=== PATIENT | female | born 1965 | race Caucasian/White ===

== ENCOUNTER → 2017-01-29 | Outpatient (CLI) | payer BC, OTHER ==
--- NOTE | 2017-01-29 08:32 | DIAGNOSTIC IMAGING REPORT ---
There is RIGHT FOOT MIN 3 VIEWS CLINICAL HISTORY: 51 years-old Female presenting with RIGHT GREAT TOE PAIN. TECHNIQUE: Frontal, oblique, and lateral views of the right foot were obtained. COMPARISON: None. FINDINGS: No acute fracture or malalignment. Specifically, the right great toe is normal appearing. No radiopaque foreign body. Regional soft tissues normal. No significant degenerative change. IMPRESSION: No acute osseous injury of the right foot. Electronically signed by: Dennis Dempsey M.D. 01/29/2017 8:30 AM Dictated Date/Time: 01/29/2017 8:19 AM
== END | disposition home or self-care (01) ==
LOC: C.RDSM 12:10
PROVIDERS: ATTEND Podiatrist
DX: M79.676 Pain in unspecified toe(s) (principal)

== ENCOUNTER → 2017-03-20 | Outpatient (CLI) | payer BC ==
--- NOTE | 2017-03-20 13:55 | MAMMOGRAPHY REPORT ---
BILATERAL DIGITAL SCREENING MAMMOGRAM TOMOSYNTHESIS WITH CAD: 03/20/2017 CLINICAL HISTORY: Routine screening. Patient has no complaints. TECHNIQUE: Breast tomosynthesis in addition to standard 2D mammography was performed. Current study was also evaluated with a Computer Aided Detection (CAD) system. COMPARISON: Comparison is made to exams dated: 03/19/2016 mammogram, 03/15/2015 mammogram, 03/09/2014 mammogram, 03/05/2013 mammogram, 02/28/2012 mammogram, and 02/28/2011 ultrasound - [facility]. BREAST COMPOSITION: There are scattered areas of fibroglandular density in both breasts. FINDINGS: No suspicious masses, calcifications, or areas of architectural distortion are noted in ei ther breast. There has been no significant interval change compared to prior exams. IMPRESSION: ACR BI-RADS CATEGORY 1: NEGATIVE There is no mammographic evidence of malignancy. A 1 year screening mammogram is recommended. The pa tient will receive written notification of the results. Approximately 10% of breast cancers are not detected with mammography. A negative mammographic report should not delay biopsy if a clinically suggestive mass is present. Mag Greer M.D. /:03/20/2017 07:38:27 Statistics Tutor: Rachelle MARMOLEJO)(Emily), [facility] letter sent: Normal 1/2 BI-RADS Code: ACR BI-RADS Category 1: Negative
== END | disposition home or self-care (01) ==
LOC: C.MAMM 07:08
PROVIDERS: ATTEND Family Medicine
DX: Z12.31 Encounter for screening mammogram for malignant neoplasm of breast (principal)

== ENCOUNTER 2019-12-28 11:48 | Observation (INO) ==
[2019-12-28] MEDS ORDERED: OPTIRAY 320 125ml IV PRN (12:17)
[2019-12-28 12:18] LABS: Basophils # (auto) 0.05 K/uL (0-0.2); Basophils % (auto) 0.8 %; Eosinophils # (auto) 0.24 K/uL (0-0.5); Eosinophils % (auto) 3.8 %; Hemoglobin 14.3 g/dL (12.0-16.0); Immature Granulocytes # (auto) 0.01 K/uL (0.00-0.02); Immature Granulocytes % (auto) 0.2 %; Lymphocytes # (auto) 2.44 K/uL (1.2-3.4); Lymphocytes % (auto) 38.8 %; Mean Corpuscular Hemoglobin 29.4 pg (25-34); Mean Corpuscular Volume 86.2 fL (80-100); Mean Platelet Volume 9.8 fL (7.4-10.4); Monocytes # (auto) 0.55 K/uL (0.11-0.59); Monocytes % (auto) 8.7 %; Neutrophils % (auto) 47.7 %; Platelet Count 316 K/uL (130-400); RDW Coefficient of Variation 13.9 % (11.5-14.5); RDW Standard Deviation 43.9 fL (36.4-46.3); Red Blood Count 4.87 M/uL (4.2-5.4); White Blood Count 6.29 K/uL (4.8-10.8)
--- NOTE | 2019-12-28 12:25 | Emergency Department Note ---
Impression & Plan TIA (transient ischemic attack), Hypertension ED Provider Note NAME: ELIZABETH KENDALL AGE: 54 SEX: F : 1965 ARRIVES VIA: Walk-In INFORMANT: Patient, ED PROVIDER(S): Tommy Hernandez DO CHIEF COMPLAINT: Weakness HPI: The patient is a 54-year-old female who presented to the emergency department for an evaluation of left-sided neurologic symptoms. The patient states that approximately 11:15 AM today she started having symptoms of neurologic problems on the left side of her body. The patient states initially she was having numbness and tingling on the left side of her face the left arm and the left leg. She states that she also noticed that she had a "heavy feeling" in her left upper extremity. The patient does not have a history of stroke in the past. She carries no history of hypertension. The patient denies having any nausea or vomiting. She denies having any headache although she does have a history of migraines. She denies having any fevers or recent traveling. The patient does have a recent procedure to her right foot and is wearing a hard bottom shoe. The patient states that she did not see her primary care physician for the symptoms because they referred her to the emergency department. She sta arya her symptoms are significantly improved but still notices heaviness in her left arm and tingling in her left arm and left face. ROS: See above HPI for pertinent positives & negatives. A total of 10 systems reviewed and were otherwise negative. PAST MEDICAL HISTORY: See Below PAST SURGICAL HISTORY: See Below FAMILY HISTORY: See Below SOCIAL HISTORY: See Below HOME MEDICATIONS: See Below ALLERGIES: See Below VITALS: See Below PHYSICAL EXAMINATION: GENERAL: Patient is awake alert in no acute distress patient is resting comfortably and showing no signs of anxiety EYES: The conjunctivae are clear. The pupils are round and reactive. EARS, NOSE, MOUTH AND THROAT: The nose is without any evidence of any deformity. Mucous membranes are moist. Tongue is midline. NECK: The neck is nontender and supple. RESPIRATORY: Normal respiratory effort is noted there is no evidence of wheezing rhonchi or rales CARDIOVASCULAR: Regular rate and rhythm noted there no murmurs rubs or gallops normal S1 normal S2. GASTROINTESTINAL: The abdomen is soft. Abdomen is nontender. MUSCULOSKELETAL/EXTREMITIES: There is no evidence of gross deformity full range of motion is noted in the hips and shoulders. SKIN: There is no obvious evidence of any rash. There are no petechiae, pallor or cyanosis noted. NEUROLOGIC: Patient is awake alert and oriented x3 strength is symmetric patellar reflexes are 2+ bilaterally MEDICAL DECISION MAKING: The patient is a 54-year-old female who presented to the emergency department for an evaluation of acute neurologic issues. The patient initially had left- sided numbness which began acutely. She also noticed heaviness in her left arm. Because of these complaints she was initially made a stroke alert. Her symptoms quickly improved while she was at home but also while she was in the emergency department. On final reevaluation her symptoms completely resolved. She was found to have elevated blood pressure initially but this also improved while she was in the emergency department. The patient has a history of an ASD. I discussed this case with the tele-stroke neurologist from [facility]. The neurologist made multiple recommendations including further TIA work-up given the patient's ASD she may be at higher risk. I discussed this plan with the patient and she was agreeable. The [facility] hospitalist was notified about this patient. The patient was treated with aspirin in the emergency department. Triage Nursing notes reviewed. Prior medical records reviewed Vital Signs: reviewed and remarkable for elevated blood pressure Differential diagnosis: Infection, dehydration, metabolic abnormality, hypo/hyperglycemia, electrolyte disturbance, anemia, hypoxia, cardiac sources, intracerebral event, toxicologic, neurologic, as well as other pathologies. ER treatment provided: See below Diagnostics interpreted by me: ECG: EKG was obtained in the emergency department. My interpretation is sinus bradycardia 52 bpm. There is no ectopy. Inferior and lateral ST depressions were noted. No previous tracing was available. Cardiac Monitoring: An order was placed for continuous cardiac monitoring. The monitor shows a rate of 55 with sinus bradycardia rhythm. Laboratory studies: As stated above and show below. Imaging studies: See below Consultation(s): 1210: I discussed this case with Dr. Majano with [facility]. She is on-call for the stroke neurologist. After reviewing the patient's physical exam as well as the radiographic studies she does recommend a formal TIA work-up including MRI of the brain, echocardiogram, A1c measurement, lipids, Holter mo nitoring, and aspirin therapy. The patient was ordered aspirin now and she also recommends 81 mg daily. 1355: I discussed this case with Dr. Delgado who is on-call for the [facility] hospitalist group. Past Med/Surg History Medical History Atrial septal defect no instrument checker, no issues Exercise-induced asthma Surgical History History of cervical cerclage (Resolved) History of colonoscopy History of oral surgery gum sx History of tonsillectomy and adenoidectomy History of tooth extraction History of wisdom tooth extraction Family History Son Allergic rhinitis Grandmother Asthma Father Family history of diabetes mellitus Other No family history of adverse response to anesthesia Social History Smoking Status: Never smoker Second Hand Exposure: No; Hx Alcohol Use: Yes Alcohol type: beer and wine Hx Substance Use: No Preferred Language: Citizen Of [place] Communication Ability: Effective Cashier Supervisor Required: No Beliefs That Will Affect Care: None marital status: Current Living Situation: Spouse current occupational status: employed Feels Safe at Home: Yes Allergies Allergies Allergy/AdvReac Type Severity Reaction Status Date / Time No Known Allergies Allergy Verified 12/28/19 13:31 Home Meds Home Medications Medication Instructions Recorded Confirmed albuterol sulfate 90 mcg/actuation 2 puffs INHALATION .COMPLEX gm 03/07/19 12/28/19 aerosol inhaler calcium carbonate 600 mg (1,500 1 tab PO 3XWK tab 03/07/19 12/28/19 mg)-vitamin D3 200 unit tablet Previous Rx's Medication Instructions Recorded montelukast 10 mg tablet 10 mg PO DAILY #90 tab 03/26/19 Results & Data (ED) Vital Signs Vital Signs - 24 hr 12/28/19 11:51 12/28/19 12:03 12/28/19 12:28 Temperature 36.6 C Temperature Source Oral Pulse Rate 68 69 Pulse Rate [Apical] 68 Pulse Rate from SpO2 Sensor 69 Pulse Rhythm [Apical] Regular Respiratory Rate 18 18 15 Respiratory Effort / Characteristics Non-Labored Non-Labored Respiratory Depth Normal Normal Blood Pressure 194/99 H 157/97 H Blood Pressure [Right Arm] 149/105 H Blood Pressure Mean 130 123 Blood Pressure Mean [Right Arm] 119 Blood Pressure Position [Right Arm] Sitting Pulse Oximetry 98 97 98 Oxygen Delivery Method Room Air Room Air Sepsis Recent Fever Within 48 Hours No Sepsis New/Unexplained Change in Mental Status No Sepsis Action Taken by Nursing No Action Required 12/28/19 12:30 12/28/19 12:32 12/28/19 13:00 Temperature Temperature Source Pulse Rate 70 69 66 Pulse Rate [Apical] Pulse Rate from SpO2 Sensor 69 69 66 Pulse Rhythm [Apical] Respiratory Rate 19 15 16 Respiratory Effort / Characteristics Respiratory Depth Blood Pressure 159/95 H 169/95 H Blood Pressure [Right Arm] Blood Pressure Mean 107 126 Blood Pressure Mean [Right Arm] Blood Pressure Position [Right Arm] Pulse Oximetry 99 98 96 Oxygen Delivery Method Sepsis Recent Fever Within 48 Hours Sepsis New/Unexplained Change in Mental Status Sepsis Action Taken by Nursing 12/28/19 13:38 Temperature Temperature Source Pulse Rate 60 Pulse Rate [Apical] Pulse Rate from SpO2 Sensor 63 Pulse Rhythm [Apical] Respiratory Rate 18 Respiratory Effort / Characteristics Respiratory Depth Blood Pressure 159/92 H Blood Pressure [Right Arm] Blood Pressure Mean 121 Blood Pressure Mean [Right Arm] Blood Pressure Position [Right Arm] Pulse Oximetry 99 Oxygen Delivery Method Sepsis Recent Fever Within 48 Hours Sepsis New/Unexplained Change in Mental Status Sepsis Action Taken by Correction Medications Current Medication List: was personally reviewed by me Laboratory Data Attestation: I reviewed the patient's lab results. Result diagrams: 12/28/19 12:10 12/28/19 12:10 Lab Results 12/28/19 12/28/19 12/28/19 Range/Units 12:10 12:10 12:10 WBC 6.29 (4.8-10.8) K/uL RBC 4.87 (4.2-5.4) M/uL Hgb 14.3 (12.0-16.0) g/dL POC Hgb (12.0-16.0) g/dl Hct 42.0 (37-47) % POC Hct (37-47) % MCV 86.2 (80-100) fL MCH 29.4 (25-34) pg MCHC 34.0 (32-36) g/dL RDW Std Deviation 43.9 (36.4-46.3) fL RDW Coeff of Perry 13.9 (11.5-14.5) % Plt Count 316 (130-400) K/uL MPV 9.8 (7.4-10.4) fL Immature Gran % (Auto) 0.2 % Neut % (Auto) 47.7 % Lymph % (Auto) 38.8 % Ward % (Auto) 8.7 % Eos % (Auto) 3.8 % Baso % (Auto) 0.8 % Neut # (Auto) 3.00 (1.4-6.5) K/uL Lymph # (Auto) 2.44 (1.2-3.4) K/uL Ward # (Auto) 0.55 (0.11-0.59) K/uL Eos # (Auto) 0.24 (0-0.5) K/uL Baso # (Auto) 0.05 (0-0.2) K/uL Immature Gran # (Auto) 0.01 (0.00-0.02) K/uL PT Cancelled INR Cancelled APTT Cancelled PTT Ratio Cancelled POC Sodium (135-144) mmol/L Sodium 138 (136-145) mmol/L POC Potassium (3.3-5.0) mmol/L Potassium 3.6 (3.5-5.1) mmol/L POC Chloride (101-112) mmol/L Chloride 103 (98-107) mmol/L Carbon Dioxide 27 (21-32) mmol/L POC Total CO2 (24-31) mmol/L Anion Gap 8.0 (3-11) POC Anion Gap (16-25) mmol/L POC BUN (7-18) mg/dl BUN 13 (7-18) mg/dl Creatinine 0.82 (0.6-1.2) mg/dl POC Creatinine (0.6-1.3) mg/dl Est Cr Clr Drug Dosing 61.3 ml/min Est GFR ( Amer) 93.4 Est GFR (Non-Af Amer) 80.6 BUN/Creatinine Ratio 15.8 (10-20) Glucose 102 H (70-99) mg/dl POC Glucose (other) (70-99) mg/dl Calcium 9.4 (8.5-10.1) mg/dl POC Ioniz Calcium Roxanne (1.12-1.32) mmol/l Magnesium 2.2 (1.8-2.4) mg/dl Total Bilirubin 0.5 (0.2-1) mg/dl AST 25 (15-37) U/L ALT 32 (12-78) U/L Alkaline Phosphatase 94 (45-117) U/L Troponin I < 0.015 (0-0.045) ng/ml Total Protein 7.5 (6.4-8.2) gm/dl Albumin 3.6 (3.4-5.0) gm/dl Globulin 3.9 (2.5-4.0) gm/dl Albumin/Globulin Ratio 0.9 (0.9-2) 12/28/19 12/28/19 Range/Units 12:14 12:57 WBC (4.8-10.8) K/uL RBC (4.2-5.4) M/uL Hgb (12.0-16.0) g/dL POC Hgb 15.3 (12.0-16.0) g/dl Hct (37-47) % POC Hct 45 (37-47) % MCV (80-100) fL MCH (25-34) pg MCHC (32-36) g/dL RDW Std Deviation (36.4-46.3) fL RDW Coeff of Perry (11.5-14.5) % Plt Count (130-400) K/uL MPV (7.4-10.4) fL Immature Gran % (Auto) % Neut % (Auto) % Lymph % (Auto) % Ward % (Auto) % Eos % (Auto) % Baso % (Auto) % Neut # (Auto) (1.4-6.5) K/uL Lymph # (Auto) (1.2-3.4) K/uL Ward # (Auto) (0.11-0.59) K/uL Eos # (Auto) (0-0.5) K/uL Baso # (Auto) (0-0.2) K/uL Immature Gran # (Auto) (0.00-0.02) K/uL PT 11.0 INR 1.0 APTT 27.3 PTT Ratio 1.0 POC Sodium 136 (135-144) mmol/L Sodium (136-145) mmol/L POC Potassium 3.6 (3.3-5.0) mmol/L Potassium (3.5-5.1) mmol/L POC Chloride 97 L (101-112) mmol/L Chloride (98-107) mmol/L Carbon Dioxide (21-32) mmol/L POC Total CO2 26 (24-31) mmol/L Anion Gap (3-11) POC Anion Gap 17.0 (16-25) mmol/L POC BUN 15 (7-18) mg/dl BUN (7-18) mg/dl Creatinine (0.6-1.2) mg/dl POC Creatinine 0.8 (0.6-1.3) mg/dl Est Cr Clr Drug Dosing ml/min Est GFR ( Amer) Est GFR (Non-Af Amer) BUN/Creatinine Ratio (10-20) Glucose (70-99) mg/dl POC Glucose (other) 105 H (70-99) mg/dl Calcium (8.5-10.1) mg/dl POC Ioniz Calcium Roxanne 1.18 (1.12-1.32) mmol/l Magnesium (1.8-2.4) mg/dl Total Bilirubin (0.2-1) mg/dl AST (15-37) U/L ALT (12-78) U/L Alkaline Phosphatase (45-117) U/L Troponin I (0-0.045) ng/ml Total Protein (6.4-8.2) gm/dl Albumin (3.4-5.0) gm/dl Globulin (2.5-4.0) gm/dl Albumin/Globulin Ratio (0.9-2) Administered Medications Ioversol (Optiray 320 125ml) 119 ml IV ONCE PRN PRN Reason: Interaction Checking Stop: 01/01/20 12:16 Last Admin: 12/28/19 12:17 Dose: 119 ml Documented by: [id number] Discontinued Medications Aspirin (Aspirin) 324 mg PO NOW STA Stop: 12/28/19 12:57 Last Admin: 12/28/19 13:22 Dose: 324 mg Documented by: [id number] Imaging Data Radiologist's Impression: CT ANGIOGRAPHY OF THE NECK WITH CONTRAST CLINICAL HISTORY: Stroke evaluation COMPARISON STUDY: No previous studies for comparison. Technique: CT angiography of the carotid and vertebral arteries was obtained using Optiray 320 IV and 3D reconstruction on an independent workstation. NASCET criteria was utilized. Automated exposure control was utilized for the study. A dose lowering technique was utilized adhering to the principles of ALARA. Findings: Enlarged, multinodular thyroid gland is again noted. This was shown on prior ultrasound of November 25, [address] of April 08, 2011. Lung apices are clear. No cervical lymphadenopathy. No cervical spine fracture is noted. Epiglottis is normal. The bilateral common carotid, internal carotid and vertebral arteries are patent. No plaque formation is noted. Left vertebral artery is dominant and patent. There is no dissection within the major vessels of the neck. There is no aneurysm within the neck. The CTA of the head will be reported separately. IMPRESSION: 1. Unremarkable CTA of the neck. 2. Redemonstration of an enlarged multinodular thyroid gland, shown on CT of March 21, 2011. ACT 112: Negative or not required by law. Electronically signed by: Chaz Cook M.D. 12/28/2019 12:31 PM Dictated: 12/28/19 1227 Transcribed: 12/28/191226 CTA ANGIOGRAPHY OF THE HEAD CLINICAL HISTORY: Stroke evaluation. Left extremity tingling. COMPARISON STUDY: No previous studies for comparison. TECHNIQUE: Helical axial images of the head were obtained following uneventful intravenous administration of 119 cc of Optiray 320. Sagittal and coronal reconstructions were viewed as well as maximal intensity projections on an independent 3-D workstation. Automated exposure control was utilized for the study. A dose lowering technique was utilized adhering to the principles of ALARA. FINDINGS: Please note that the CTA of the neck and head CT will be reported separately. No acute intracranial hemorrhage, midline shift or mass effect is present. Ventricular system is unremarkable. The basilar cisterns are patent. There are no extra-axial collections. The bilateral M1, M2, A1 and A2 segments are patent. There is an anterior communicating artery. There is no intracranial aneurysm or dissection. No intraluminal thrombus or abrupt vessel cut off is identified. Intracranial bilateral vertebral arteries are patent. Left vertebral artery is dominant. Basilar artery and bilateral posterior cerebral arteries are patent. Posterior circulation is intact. No plaque formation is noted. IMPRESSION: Unremarkable CTA of the head. ACT 112: Negative or not required by law. Electronically signed by: Chaz Cook M.D. 12/28/2019 12:37 PM Dictated: 12/28/19 1233 Transcribed: 12/28/[address] OF THE HEAD WITHOUT CONTRAST CLINICAL HISTORY: Stroke evaluation COMPARISON STUDY: No previous studies for comparison. CT DOSE: 1017.11 mGy.cm TECHNIQUE: Helical axial images of the head were obtained without IV contrast. Automated exposure control was utilized for the study. A dose lowering technique was utilized adhering to the principles of ALARA. FINDINGS: No acute intracranial hemorrhage, midline shift or mass effect is present. Slight asymmetry of the lateral ventricles represents physiologic variation. The basilar cisterns are patent. No extra-axial collections are present. There are no findings to suggest acute dural sinus thrombosis or acute territorial infarct. No significant calvarial abnormalities are present. Visualized portions of the sinuses and mastoid air cells are clear. IMPRESSION: No acute intracranial findings. ACT 112: Negative or not required by law. Electronically signed by: Chaz Cook M.D. 12/28/2019 12:27 PM Dictated: 12/28/19 1224 Transcribed: 12/28/19 1224 XR chest 1V portable CLINICAL HISTORY: weak COMPARISON STUDY: Chest CT March 21, 2011. Chest radiograph December 2019. FINDINGS: Lung volumes are normal. Lungs are clear. There is no pneumothorax or pleural effusion. Cardiac size is normal. Mediastinal contours are normal. There is no evidence for pulmonary edema. IMPRESSION: No acute cardiopulmonary findings. ACT 112: Negative or not required by law. Electronically signed by: Chaz Cook M.D. 12/28/2019 12:38 PM Dictated: 12/28/19 1238 Transcribed: 12/28/19 1238 Blood Pressure Blood Pressure Findings: Elevated blood pressure Blood Pressure Disposition: further management by hospitalist Discharge Plan Visit Data Chief Complaint: Referred by Doctor Stated Complaint: LEFT SIDE ARM NUMBNESS, ED Provider: Tommy Hernandez Discharge Problem: TIA (transient ischemic attack), Hypertension Patient Disposition: Being Evaluated by Hospitalist Condition: Good Forms Stand Alone Forms: My [employer] Prescriptions Prescriptions: No Action albuterol sulfate 90 mcg/actuation HFA aerosol inhaler 2 puffs inhalation .COMPLEX RF: 0 calcium carbonate-vitamin D3 600 mg(1,500mg) -200 unit tablet 1 tab PO 3XWK RF: 0 montelukast 10 mg tablet 10 mg PO DAILY Qty: 90 RF: 3 Referrals Referrals: Nuria Toribio DO [Primary Care Provider] -
[2019-12-28 12:28] LABS: iSTAT Creatinine 0.8 mg/dl (0.6-1.3); iSTAT Hemoglobin 15.3 g/dl (12.0-16.0); iSTAT Ionized Calcium 1.18 mmol/l (1.12-1.32); iSTAT Potassium 3.6 mmol/L (3.3-5.0)
--- NOTE | 2019-12-28 12:28 | CT Scan Report ---
CT OF THE HEAD WITHOUT CONTRAST CLINICAL HISTORY: Stroke evaluation COMPARISON STUDY: No previous studies for comparison. CT DOSE: 1017.11 mGy.cm TECHNIQUE: Helical axial images of the head were obtained without IV contrast. Automated exposure con trol was utilized for the study. A dose lowering technique was utilized adhering to the principles o f ALARA. FINDINGS: No acute intracranial hemorrhage, midline shift or mass effect is present. Slight asymmetry of the lateral ventricles represents physiologic variation. The basilar cisterns are patent. No extr a-axial collections are present. There are no findings to suggest acute dural sinus thrombosis or acu te territorial infarct. No significant calvarial abnormalities are present. Visualized portions of th e sinuses and mastoid air cells are clear. IMPRESSION: No acute intracranial findings. ACT 112: Negative or not required by law. Electronically signed by: Chaz Cook M.D. 12/28/2019 12:27 PM
--- NOTE | 2019-12-28 12:33 | CT Scan Report ---
CT ANGIOGRAPHY OF THE NECK WITH CONTRAST CLINICAL HISTORY: Stroke evaluation COMPARISON STUDY: No previous studies for comparison. Technique: CT angiography of the carotid and vertebral arteries was obtained using [employer] 320 IV and 3D reconstruction on an independent workstation. NASCET criteria was utilized. Automated exposure c ontrol was utilized for the study. A dose lowering technique was utilized adhering to the principles of ALARA. Findings: Enlarged, multinodular thyroid gland is again noted. This was shown on prior ultrasound of November 25, [address] of April 08, 2011. Lung apices are clear. No cervical lymphadenopathy. N o cervical spine fracture is noted. Epiglottis is normal. The bilateral common carotid, internal cornelius tid and vertebral arteries are patent. No plaque formation is noted. Left vertebral artery is dominan t and patent. There is no dissection within the major vessels of the neck. There is no aneurysm withi n the neck. The CTA of the head will be reported separately. IMPRESSION: 1. Unremarkable CTA of the neck. 2. Redemonstration of an enlarged multinodular thyroid gland, shown on CT of March 21, 2011. ACT 112: Negative or not required by law. Electronically signed by: Chaz Cook M.D. 12/28/2019 12:31 PM
--- NOTE | 2019-12-28 12:38 | CT Scan Report ---
CTA ANGIOGRAPHY OF THE HEAD CLINICAL HISTORY: Stroke evaluation. Left extremity tingling. COMPARISON STUDY: No previous studies for comparison. TECHNIQUE: Helical axial images of the head were obtained following uneventful intravenous administr ation of 119 cc of Optiray 320. Sagittal and coronal reconstructions were viewed as well as maximal i ntensity projections on an independent 3-D workstation. Automated exposure control was utilized for the study. A dose lowering technique was utilized adhering to the principles of ALARA. FINDINGS: Please note that the CTA of the neck and head CT will be reported separately. No acute intr acranial hemorrhage, midline shift or mass effect is present. Ventricular system is unremarkable. The basilar cisterns are patent. There are no extra-axial collections. The bilateral M1, M2, A1 and A2 s egments are patent. There is an anterior communicating artery. There is no intracranial aneurysm or d issection. No intraluminal thrombus or abrupt vessel cut off is identified. Intracranial bilateral ve rtebral arteries are patent. Left vertebral artery is dominant. Basilar artery and bilateral posterio r cerebral arteries are patent. Posterior circulation is intact. No plaque formation is noted. IMPRESSION: Unremarkable CTA of the head. ACT 112: Negative or not required by law. Electronically signed by: Chaz Cook M.D. 12/28/2019 12:37 PM
--- NOTE | 2019-12-28 12:40 | XRay Report ---
XR chest 1V portable CLINICAL HISTORY: weak COMPARISON STUDY: Chest CT March 21, 2011. Chest radiograph December 2019. FINDINGS: Lung volumes are normal. Lungs are clear. There is no pneumothorax or pleural effusion. Car diac size is normal. Mediastinal contours are normal. There is no evidence for pulmonary edema. IMPRESSION: No acute cardiopulmonary findings. ACT 112: Negative or not required by law. Electronically signed by: Chaz Cook M.D. 12/28/2019 12:38 PM
[2019-12-28 12:41] LABS: Alanine Aminotransferase 32 U/L (12-78); Albumin Level 3.6 gm/dl (3.4-5.0); Aspartate Aminotransferase 25 U/L (15-37); BUN Creatinine Ratio 15.8 (10-20); Blood Urea Nitrogen 13 mg/dl (7-18); Calcium 9.4 mg/dl (8.5-10.1); Carbon Dioxide 27 mmol/L (21-32); Chloride 103 mmol/L (98-107); Creatinine Clr Calc Pharmacy 61.3 ml/min; Est GFR (African American) 93.4; Est GFR (Non-African American) 80.6; Glucose 102 mg/dl (70-99); Magnesium 2.2 mg/dl (1.8-2.4); Potassium 3.6 mmol/L (3.5-5.1); Sodium 138 mmol/L (136-145)
[2019-12-28 12:46] LABS: Albumin Globulin Ratio 0.9 (0.9-2); Alkaline Phosphatase 94 U/L (45-117); Bilirubin,Total 0.5 mg/dl (0.2-1); Globulin 3.9 gm/dl (2.5-4.0); Total Protein 7.5 gm/dl (6.4-8.2); Troponin I < 0.015 ng/ml (0-0.045)
[2019-12-28] MEDS ORDERED: ASPIRIN CHEW 324 MG PO STA (12:56)
[2019-12-28 13:31] LABS: Partial Thromboplastin Time 27.3 Seconds (21.0-31.0)
--- NOTE | 2019-12-28 13:43 | Electrocardiogram Report ---
Test Reason : Blood Pressure : / mmHG Vent. Rate : 052 BPM Atrial Rate : 052 BPM P-R Int : 166 ms QRS Dur : 082 ms QT Int : 460 ms P-R-T Axes : 057 022 055 degrees QTc Int : 427 ms Sinus bradycardia Possible Left atrial enlargement Nonspecific ST abnormality Abnormal ECG No previous ECGs available Confirmed by Tommy Rhodes ([id number]) on 12/28/2019 1:43:31 PM Referred By: ED Confirmed By:Tommy Rhodes
--- NOTE | 2019-12-28 14:35 | History & Physical Report ---
Date of Service December 28, 2019 Assessment & Plan (1) Stroke-like symptoms: Suspect complex migraine without headache given significant history of this and associated lightheadedness (no vertigo). However symptoms are significantly different from her usual migranous auras and age > 50 yo therefore will complete workup for possible purely sensory (?thalamic) TIA and continue on aspirin pending neurology review. NIH - 0 (symptoms currently completely resolved) ABCD2 score 2 - low risk TTE - if prior atrial septal defect confirmed recommend ultrasound venous Doppler bilateral lower extremity to assess for DVT. Stroke without TPA protocol MRI Brain w/o contrast Lipid panel and HbA1c with a.m. labs - start statin based on neurology consult and AM labs Given resolution of symptoms no need for PT/OT/speech evals Consult neurology (2) Migraine with aura: as above (3) Extrinsic asthma: Albuterol PRN (4) Allergic rhinitis due to pollen: Continue montelukast 10mg PO daily (5) Multinodular thyroid: Incidental finding on CTA, similar to 2011. TSH with a.m. labs Recommend outpatient ultrasound thyroid if not previously performed to assess any particular concerning nodules. Admission and Anticipated Discharge Date Admission Date: 12/28/2019 Anticipated date of discharge: 12/29/19 History of Present Illness Chief Complaint: Stroke-like symptoms Primary Care Provider: Nuria Toribio DO Nila Michel is a 54 year old female who presents to the ER with stroke-like symptoms (purely sensory left sided face, arm, leg numbness/tingling). Symptoms started approximately 11:15 AM while working on a computer. Sudden onset dizziness/lightheadedness/feeling faint with gradually worsening tingling and numbness on the left side of her body including face, arm, leg. She denies any diplopia or vertigo sensation. Symptoms became worse over the 5 to 10 minutes and then gradually became better the next 30 minutes. Her left arm was the last symptom to resolve. No extremity weakness, change in hearing, speech, vision (other than that mentioned above). She has a longstanding history of migraines. These are much more severe as a teenager and classic with a headache lasting for hours with noise and light making it worse. More recently she has an aura/vision sensation without headache which she puts down to migraines usually once a month. These last for 15 to 20 minutes. She had 1 of these yesterday. No increased frequency recently. No increase in stress. No association with looking at screens. Symptoms above are very different to these previous migraine attacks. Telemetry stroke in the ER recommended no TPA given resolution of symptoms. Recommended inpatient work-up for TIA. Allergies Allergy/AdvReac Type Severity Reaction Status Date / Time No Known Allergies Allergy Verified 12/28/19 13:31 Home Medications Home Medications Medication Instructions Recorded Confirmed Type albuterol sulfate 90 mcg/actuation 2 puffs INHALATION .COMPLEX gm 03/07/19 12/28/19 History aerosol inhaler calcium carbonate 600 mg (1,500 1 tab PO 3XWK tab 03/07/19 12/28/19 History mg)-vitamin D3 200 unit tablet montelukast 10 mg tablet 10 mg PO DAILY #90 tab 03/26/19 12/28/19 Rx Past Med/Surg History Medical History Atrial septal defect no boarder machine, no issues Exercise-induced asthma Surgical History History of cervical cerclage (Resolved) History of colonoscopy History of oral surgery gum sx History of tonsillectomy and adenoidectomy History of tooth extraction History of wisdom tooth extraction Family History Son Allergic rhinitis Grandmother Asthma Father Family history of diabetes mellitus Other No family history of adverse response to anesthesia Social History Smoking Status: Never smoker Second Hand Exposure: No; Hx Alcohol Use: Yes Alcohol type: wine Hx Substance Use: No Preferred Language: Emirati Communication Ability: Effective Service Associate Required: No Beliefs That Will Affect Care: None marital status: Current Living Situation: Spouse current occupational status: employed Feels Safe at Home: Yes Review of Systems Review of Systems: All systems reviewed & are unremarkable except as noted in HPI & below Physical Exam Constitutional: well developed and well nourished; no acute distress Eyes: PERRL, conjunctivae normal, anicteric sclerae EOM intact bilaterally (No diplopia) ENMT: external ear and nose normal, oropharynx normal Neck: trachea midline, no thyromegaly Respiratory: normal respiratory effort, lungs clear to auscultation Cardiovascular: RRR, no murmur, no edema Gastrointestinal (Abdomen): normal bowel sounds, soft, nontender, no hepatosplenomegaly Musculoskeletal: no cyanosis or clubbing, extremities motor strength 5/5 Skin: no rashes, warm and dry Neurologic: moves all extremities and awake; no focal motor deficits and not confused Motor/Sensory: no tremor, no pronator drift and no sensory deficit Cranial Nerves: PERRL, normal accommodation, EOM intact bilaterally, normal facial strength, normal hearing, able to rotate head bilaterally, able to elevate shoulders bilaterally, no nystagmus and symmetric palate elevation Coordination: normal pioygi-tq-unvx test and normal qiea-lh-ugzr test Psychiatric: A+Ox3, euthymic affect Lymphatic: no cervical or axillary lymphadenopathy Results & Data Results & Data ([facility]) Vital Signs (Past 12 Hours) Vital Signs Temp Pulse Pulse Resp BP BP Pulse Ox 12/28/19 13:38 60 18 159/92 H 99 12/28/19 13:00 66 16 169/95 H 96 12/28/19 12:32 69 15 98 12/28/19 12:30 70 19 159/95 H 99 12/28/19 12:28 69 15 157/97 H 98 12/28/19 12:03 68 18 149/105 H 97 12/28/19 11:51 36.6 C 68 18 194/[address] OF THE HEAD WITHOUT CONTRAST IMPRESSION: No acute intracranial findings. CTA ANGIOGRAPHY OF THE HEAD IMPRESSION: Unremarkable CTA of the head. CT ANGIOGRAPHY OF THE NECK WITH CONTRAST IMPRESSION: 1. Unremarkable CTA of the neck. 2. Redemonstration of an enlarged multinodular thyroid gland, shown on CT of March 21, 2011. ECG Indication: other (Strokelike symptoms) Rate (beats per minute): 52 Rhythm: sinus bradycardia Findings: no acute ischemic change Comparison ECG Date: no prior available Code Status & VTE Plan Code Status Full VTE Prophylaxis Plan VTE Prophylaxis will be ordered: No PG Care Time/CCT Total # of Minutes Spent Total Time Spent with Patient: Total time spent is greater than 50% in coordination of care (as documented) at patient's floor/unit and/or counseling patient: Coding Level of Care Code 05078 Initial Inpt Care Lvl 3 Diagnoses Stroke-like symptoms R29.90 Migraine with aura G43.109 Intractability: not intractable Status migrainosus presence: without status migrainosus Extrinsic asthma J45.20 Asthma complication type: uncomplicated Asthma persistence: intermittent Asthma severity: mild Allergic rhinitis due to pollen J30.1 Multinodular thyroid E04.2 (1) Migraine with aura Intractability: not intractable Status migrainosus presence: without status migrainosus Qualified Code(s): G43.109 - Migraine with aura, not intractable, without status migrainosus (2) Extrinsic asthma Asthma complication type: uncomplicated Asthma persistence: intermittent Asthma severity: mild Qualified Code(s): J45.20 - Mild intermittent asthma, uncomplicated
[2019-12-28] MEDS ORDERED: PHARMACIST DISCHARGE MED REC CONSULT PRN (15:31)
[2019-12-28] MEDS ORDERED: CALCIUM 600MG + VIT D 400 IU TAB PO PRN (16:00)
--- NOTE | 2019-12-28 16:46 | Magnetic Resonance Report ---
Brain MRI WITHOUT CONTRAST HISTORY: Left sided numbness/tingling TECHNIQUE: Multiplanar multisequence MRI of the brain was performed without the use of contrast. COMPARISON STUDY: Head and neck CTA 12/28/2019. FINDINGS: No areas of restricted diffusion to suggest acute infarction. The midline structures are in tact. The major vascular flow-voids at the skull base are well-maintained. There is an old punctate l acunar infarcts within the right cerebellar hemisphere. Mild mucosal thickening within the left nasal cavity with a hypertrophied nasal turbinate. Small retention cyst within the right maxillary sinus. The mastoid air cells are clear. The orbits are unremarkable. The ventricles and sulci are within nor mal limits. There is no mass, hematoma, midline shift. There are few scattered punctate foci of T2 to hyperintensity seen within the periventricular and subcortical white matter of the supratentorial br ain. These are nonspecific but favor minimal microvascular ischemic change. IMPRESSION: No acute intracranial abnormality. ACT 112: Negative or not required by law. Electronically signed by: Corey Quiñones M.D. 12/28/2019 4:45 PM
--- NOTE | 2019-12-28 18:55 | Neurology Consultation ---
Date of Consultation December 28, 2019 Assessment & Plan (1) Stroke-like symptoms: Nila Michel is a 54 yo woman w/ PMH of ASD, exercise-induced asthma and history of migraine headaches who presents to [facility] after acute onset of visual changes associated with left face and upper extremity tingling. Symptom localization: right IC vs right basis pontis Stroke mechanism: lacunar/lipohyalinosis, less likely cardioembolic Stroke WorkUp: - CT head: no hemorrhage or hypodensity - CTA head/neck: no LVO, high-grade stenosis or aneurysm - MRI brain: no acute infarct, minimal small vessel disease including a single lesion in the right lateral china and asymmetric lateral ventricles - TTE: pending, will consider RADHA - Telemetry: pending - A1c: pending - FLP: pending - Troponin, TSH: negative, pending Stroke Management: - Acute treatment: ASA - Continuous cardiac monitoring, will consider 30 day event monitor on d/c - Vitals, Neurochecks, NIHSS per unit routine - BP parameters: SBP CAP 220, hold home anti-hypertensives for permissive HTN, IV Labetalol/Hydralazine PRN - Complete ischemic stroke workup with TTE without bubble, A1c, fasting lipid panel, TSH, Tn - Consult speech, PT, OT for supportive management - Will relationship counselor concerning stroke education, smoking cessation, healthy diet, physical activity, weight loss - Follow up with PCP for assistance with outpatient goals (BP <130/80, LDL <70, A1c <7) - Follow up in neurology clinic in 6-8 weeks - LE Dopplers given h/o known ASD Secondary Stroke Prevention: - Antiplatelet: ASA 81mg po daily - Anticoagulation: Not indicated at this time - Statin: Atorvastatin 40mg daily pending lipid panel results HTN: - BP parameters, as above FEN/GI: - Diet: Cardiac HH diet and PO meds given absence of bulbar signs or symptoms - Monitor lytes and replete PRN Glucose Control: - Sliding scale insulin and accuchecks per primary team to avoid hyperglycemia # Migraine with aura: - recommended that she start magnesium 200-400mg daily for migraine prevention - discussed with her that migraines are unfortunately a non-modifiable stroke risk factor and that she should work to optimize stroke risk factors as above Thank you for this interesting consult. Plan of care was discussed with primary team. Please call with any questions. (2) Migraine with aura: History of Present Illness Attending Physician: Pawel Delgado MD History of Present Illness Nila Michel is a 54 yo woman w/ PMH of ASD, exercise-induced asthma and history of migraine headaches who presents to [facility] after acute onset of visual changes associated with left face and upper extremity tingling. CISSP ~11:15am on 12/28/19. In the ED, patient was afebrile, BP 194/99, heart rate 68, respiratory rate 18, satting 90% on room air. Labs notable for WBC 6.29, hemoglobin 14.3, platelets 316, electrolytes within normal, creatinine 0.2, glucose 102, calcium 9.4, magnesium 2.2, LFTs within normal, troponin negative. Imaging independently reviewed. CT head shows no hemorrhage or hypodensity. CTA head and neck shows no LVO, high-grade stenosis or aneurysm. MRI brain shows no acute infarct, minimal small vessel disease including a single lesion in the right lateral china and asymmetric lateral ventricles. On examination, she reports that she has a history of migraines that would start off with similar visual changes with spots in her vision with slow progression of numbness and tingling of her left arm and face. Episode today was different and that she had acute onset of this numbness and tingling involving her face and arm, as well as her left leg. She denies having any current headache. Does note that since her surgery last week, she has had at least one typical migraine for her. Does intermittently take magnesium at home from GI issues but not kleber kyle prevention. Denies any recent illness, injury or medication changes aside from taking Tylenol with codeine one time since her surgery last week. Reports that all symptoms resolved within a few hours. 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 Exercise-induced asthma Surgical History History of cervical cerclage (Resolved) History of colonoscopy History of oral surgery gum sx History of tonsillectomy and adenoidectomy History of tooth extraction History of wisdom tooth extraction Family History Son Allergic rhinitis Grandmother Asthma Father Family history of diabetes mellitus Other No family history of adverse response to anesthesia Social History Smoking Status: Never smoker Second Hand Exposure: No; Hx Alcohol Use: Yes Alcohol type: wine Hx Substance Use: No Preferred Language: American Communication Ability: Effective 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 Exam (Neuro) Physical Exam: General Exam: GEN: NAD, sitting down in examination bed. HEENT: No conjunctival injection, no rhinorrhea, moist mucus membranes. CV: RRR on monitor, no significant edema. PULM: Nonlabored respirations on room air. Neuro Exam: MS: Awake and Alert. Oriented to person, place, and date. Speech fluent and appropriate without dysarthria or paraphasic errors. Language intact including naming, comprehension, repetition. Cognition and memory grossly intact. Attention intact. No neglect. CN: Visual mejia full, + blink to threat bilaterally. No extinction to double simultaneous stimuli. Normal fundoscopic exam. PERRLA OU. EOMI without nystagmus. Facial sensation intact to LT. Facial muscles full and symmetric. Hearing intact to finger rub bilaterally. Uvula midline with symmetric palatal elevation. Shoulder shrug normal. Tongue midline. MOTOR: Normal bulk and tone. No pronator drift. BUE strength 5/5 at deltoids, biceps, triceps, wrist flexors and extensors, and finger flexors bilaterally. BL E strength 5/5 at iliopsoas, hamstrings, quadriceps, L tibialis anterior and L gastrocnemius (right foot in boot from recent surgery and unable to fully examine) REFLEXES: 1+ at biceps, triceps, brachioradialis, 2+ patella, and trace Achilles bilaterally. Flexor plantar responses bilaterally. SENSORY: Intact to LT/virbation throughout, no extinction to double simultaneous stimuli. COORDINATION: No dysmetria or ataxia on dkeqtu-pl-rbne bilaterally. Normal Neftali bilaterally. GAIT: Deferred due to physical status. NIH STROKE SCALE 1A. Level of Consciousness (0-3) = 0 1B. LOC Questions (0-2) = 0 1C. LOC Commands (0-2) = 0 2. Best Horizontal Gaze (0-2) = 0 3. Visual Mejia (0-3) = 0 4. Facial Palsy (0-3) = 0 5. Motor Arm Right (0-4) = 0 Left (0-4) = 0 6. Motor Leg Right (0-4) = 0 Left (0-4) = 0 7. Limb Ataxia (0-2) = 0 8. Sensory (0-2) = 0 9. Best Language (0-3) = 0 10. Dysarthria (0-2) = 0 11. Extinction and Inattention (0-2) = 0 NIHSS TOTAL = 0 Results & Data ([facility]) Vital Signs (Past 12 Hours) Vital Signs Temp Pulse Pulse Resp BP BP Pulse Ox 12/28/19 15:42 68 12/28/19 15:31 37.0 C 76 20 145/88 H 96 12/28/19 15:08 70 16 148/81 H 97 12/28/19 14:31 70 16 148/81 H 97 12/28/19 14:01 65 16 155/119 H 99 12/28/19 13:38 60 18 159/92 H 99 12/28/19 13:00 66 16 169/95 H 96 12/28/19 12:32 69 15 98 12/28/19 12:30 70 19 159/95 H 99 12/28/19 12:28 69 15 157/97 H 98 12/28/19 12:03 68 18 149/105 H 97 12/28/19 11:51 36.6 C 68 18 194/99 H 98 PG Care Time/CCT Total # of Minutes Spent Total Time Spent with Patient: Total time spent is greater than 50% in coordination of care (as documented) at patient's floor/unit and/or counseling patient: Coding Level of Care Code 12339 Inpt Consult Level 5 Diagnoses Stroke-like symptoms R29.90 Migraine with aura G43.109
--- NOTE | 2019-12-29 06:32 | Ultrasound Report ---
BILATERAL LOWER EXTREMITY VENOUS DOPPLER HISTORY: Assess for DVT. possible TIA COMPARISON STUDY: None. FINDINGS: There is normal compressibility, flow, and augmentation within the bilateral lower extremit y deep venous systems. IMPRESSION: No DVT within the right or left lower extremity. ACT 112: Negative or not required by law. Electronically signed by: Corey Quiñones M.D. 12/28/2019 8:34 PM
[2019-12-29 07:40] LABS: Basophils # (auto) 0.03 K/uL (0-0.2); Basophils % (auto) 0.7 %; Eosinophils # (auto) 0.21 K/uL (0-0.5); Eosinophils % (auto) 4.8 %; Hematocrit (blood only) 43.7 % (37-47); Hemoglobin 14.8 g/dL (12.0-16.0); Immature Granulocytes # (auto) 0.01 K/uL (0.00-0.02); Immature Granulocytes % (auto) 0.2 %; Lymphocytes # (auto) 1.89 K/uL (1.2-3.4); Lymphocytes % (auto) 42.8 %; Mean Corpuscular Hemoglobin 29.4 pg (25-34); Mean Corpuscular Hgb Conc 33.9 g/dL (32-36); Mean Corpuscular Volume 86.9 fL (80-100); Mean Platelet Volume 9.9 fL (7.4-10.4); Monocytes # (auto) 0.45 K/uL (0.11-0.59); Monocytes % (auto) 10.2 %; Neutrophils # (auto) 1.83 K/uL (1.4-6.5); Neutrophils % (auto) 41.3 %; Platelet Count 332 K/uL (130-400); RDW Coefficient of Variation 14.1 % (11.5-14.5); RDW Standard Deviation 44.6 fL (36.4-46.3); Red Blood Count 5.03 M/uL (4.2-5.4); White Blood Count 4.42 K/uL (4.8-10.8)
[2019-12-29 08:17] LABS: BUN Creatinine Ratio 17.2 (10-20); Calcium 9.3 mg/dl (8.5-10.1); Creatinine Clr Calc Pharmacy 53.5 ml/min; Est GFR (African American) 79.2; Est GFR (Non-African American) 68.3
[2019-12-29 08:27] LABS: Thyroid Stimulating Hormone 1.42 uIu/ml (0.300-4.500)
[2019-12-29] MEDS ORDERED: ASPIRIN 81 MG ECTAB PO SCH (09:00)
[2019-12-29] MEDS ORDERED: MONTELUKAST SODIUM 10 MG TABLET PO SCH (09:00)
--- NOTE | 2019-12-29 09:50 | XCELERA ---
[id number] \\[id number]
[2019-12-29 09:58] LABS: Estimated Average Glucose 117 mg/dl; Hemoglobin A1C 5.7 % (4.5-5.6)
[2019-12-29] MEDS ORDERED: STROKE PATIENT DISCHARGE STA (12:05)
--- NOTE | 2019-12-29 12:36 | Pharmacy Report ---
Pharmacist Stroke Counseling - Date of Service December 29, 2019 - Scope: Pharmacy has been consulted to provide medication discharge counseling for this patient admitted with transient ischemic attack as per the Pharmacist Discharge Counseling for Stroke Patients Protocol. - Medications on Discharge: Home Medications Medication Instructions Recorded Confirmed albuterol sulfate 90 mcg/actuation 2 puffs INHALATION .COMPLEX gm 03/07/19 12/28/19 aerosol inhaler calcium carbonate 600 mg (1,500 1 tab PO 3XWK tab 03/07/19 12/28/19 mg)-vitamin D3 200 unit tablet New Rx's Medication Instructions Recorded montelukast 10 mg tablet 10 mg PO DAILY #90 tab 03/26/19 aspirin 81 mg PO QAM #1 tab 12/29/19 atorvastatin 20 mg PO DAILY #30 tab 12/29/19 - Action: The above medications, specifically ones for stroke treatment/prophylaxis, have been reviewed in detail with the patient prior to discharge. This includes indication, common adverse reactions, drug interactions, and medication administration. Medication counseling has been employed using the teach-back method to ensure understanding. - Outcome: The patient has demonstrated understanding of the medications. Additional comments: Spoke over the phone with patient today- she was very pleasant and receptive to counseling. Reviewed new medications to prevent stroke including Aspirin, Atorvastatin. Discussed why they are being used and common side effects in great detail. Reviewed how to use the medications, what to do if doses are missed, common drug interactions, common side effects, what to watch out for while using the medications. Pt verbalized understanding and restated the alvarenga points of each medication. Patient getting discharged on Atorvastatin 20 mg daily. Atorvastatin 40 mg daily recommended post TIA/ stroke for intense lipid lowering effects. Spoke to Dr. Matson - patient was open to starting low and adjusting up slowly as needed. D/w patient regarding higher dose Atorvastatin 40 mg giving better lipid lowering effects post TIA. However, pt worried about side effects of myalgia and hesitant to start on 40 mg. Continued with Atorvastatin 20 mg daily. Thank you for allowing pharmacy to be involved in the care of this patient. Please call [phone] with any additional questions
--- NOTE | 2019-12-29 12:45 | Neurology Progress Note ---
Date of Service December 29, 2019 Assessment & Plan (1) Stroke-like symptoms: Nila Michel is a 54 yo woman w/ PMH of ASD, exercise-induced asthma and history of migraine headaches who presents to [facility] after acute onset of visual changes associated with left face and upper extremity tingling. Symptom localization: right IC vs right basis pontis Stroke mechanism: lacunar/lipohyalinosis, less likely cardioembolic Stroke WorkUp: - CT head: no hemorrhage or hypodensity - CTA head/neck: no LVO, high-grade stenosis or aneurysm - MRI brain: no acute infarct, minimal small vessel disease including a single lesion in the right lateral [place] and asymmetric lateral ventricles - TTE: EF 60-65%, ASD/PFO, stable from prior echo - Telemetry: Normal sinus rhythm - A1c: 5.7 - FLP: 136 - Troponin, TSH: negative, within normal Stroke Management: - Acute treatment: ASA - Continuous cardiac monitoring, 30 day event monitor on d/c (can be ordered as an outpt) - Vitals, Neurochecks, NIHSS per unit routine - BP parameters: SBP CAP 180, goal normotension - Consult speech, PT, OT for supportive management - Counselled concerning stroke education, smoking cessation, healthy diet, physical activity, weight loss - Follow up with PCP for assistance with outpatient goals (BP <130/80, LDL <70, A1c <7) - Follow up in neurology clinic in 6-8 weeks - LE Dopplers negative Secondary Stroke Prevention: - Antiplatelet: ASA 81mg po daily - Anticoagulation: Not indicated at this time - Statin: Atorvastatin 80mg daily HTN: - BP parameters, as above FEN/GI: - Diet: Cardiac HH diet and PO meds given absence of bulbar signs or symptoms - Monitor lytes and replete PRN Glucose Control: - Sliding scale insulin and accuchecks per primary team to avoid hyperglycemia # Migraine with aura: - recommended that she start magnesium 200-400mg daily for migraine prevention - discussed with her that migraines are unfortunately a non-modifiable stroke risk factor and that she should work to optimize stroke risk factors as above - will recommend trial of ubrelvy as an outpatient for acute migraine treatment as we cannot completely r/o TIA as cause of current episode (which is a contraindication to triptans) Thank you for this interesting consult. Plan of care was discussed with primary team. Please call with any questions. (2) Migraine with aura: Admission and Anticipated Discharge Date Admission Date: December 28, 2019 Anticipated date of discharge: 12/29/19 Subjective NAEs overnight. Doing well this morning, no further similar episodes noted. Review of Systems Review of Systems: 14 point review of systems completed and negative except as in HPI. Results & Data ([facility]) Vital Signs (Past 12 Hours) Vital Signs Temp Pulse Pulse Resp BP Pulse Ox 12/29/19 12:18 36.8 C 56 L 16 129/85 97 12/29/19 11:19 36.8 C 56 L 16 129/85 97 12/29/19 08:30 50 L 12/29/19 06:53 36.7 C 60 18 110/62 95 12/29/19 04:29 36.8 C 54 L 18 110/73 96 Exam (Neuro) Physical Exam: General Exam: GEN: NAD, sitting down in examination bed. HEENT: No conjunctival injection, no rhinorrhea, moist mucus membranes. CV: RRR on monitor, no significant edema. PULM: Nonlabored respirations on room air. Neuro Exam: MS: Awake and Alert. Oriented to person, place, and date. Speech fluent and appropriate without dysarthria or paraphasic errors. Language intact including naming, comprehension, repetition. Cognition and memory grossly intact. Attention intact. No neglect. CN: Visual jacques full, + blink to threat bilaterally. No extinction to double simultaneous stimuli. Normal fundoscopic exam. PERRLA OU. EOMI without nystagmus. Facial sensation intact to LT. Facial muscles full and symmetric. Hearing intact to finger rub bilaterally. Uvula midline with symmetric palatal elevation. Shoulder shrug normal. Tongue midline. MOTOR: Normal bulk and tone. No pronator drift. BUE strength 5/5 at deltoids, biceps, triceps, wrist flexors and extensors, and finger flexors bilaterally. BLE strength 5/5 at iliopsoas, hamstrings, quadriceps, L tibialis anterior and L gastrocnemius (right foot in boot from recent surgery and unable to fully examine) REFLEXES: 1+ at biceps, triceps, brachioradialis, 2+ patella, and trace Achilles bilaterally. Flexor plantar responses bilaterally. SENSORY: Intact to LT/virbation throughout, no extinction to double simultaneous stimuli. COORDINATION: No dysmetria or ataxia on [id number] bilaterally. Normal Neftali bilaterally. GAIT: Deferred due to physical status. NIH STROKE SCALE 1A. Level of Consciousness (0-3) = 0 1B. LOC Questions (0-2) = 0 1C. LOC Commands (0-2) = 0 2. Best Horizontal Gaze (0-2) = 0 3. Visual Jacques (0-3) = 0 4. Facial Palsy (0-3) = 0 5. Motor Arm Right (0-4) = 0 Left (0-4) = 0 6. Motor Leg Right (0-4) = 0 Left (0-4) = 0 7. Limb Ataxia (0-2) = 0 8. Sensory (0-2) = 0 9. Best Language (0-3) = 0 10. Dysarthria (0-2) = 0 11. Extinction and Inattention (0-2) = 0 NIHSS TOTAL = 0 PG Care Time/CCT Total # of Minutes Spent Total Time Spent with Patient: Total time spent is greater than 50% in coordination of care (as documented) at patient's floor/unit and/or counseling patient: Coding Level of Care Code 34226 Subseq Hosp Care Lvl 3 Diagnoses Stroke-like symptoms R29.90 Migraine with aura G43.109 Status migrainosus presence: without status migrainosus Intractability: not intractable (1) Migraine with aura Status migrainosus presence: without status migrainosus Intractability: not intractable Qualified Code(s): G43.109 - Migraine with aura, not intractable, without status migrainosus
--- NOTE | 2019-12-29 20:27 | Discharge Summary ---
Date of Service December 29, 2019 Admission HPI Per Admitting Provider Nila Michel is a 54 year old female who presents to the ER with stroke-like symptoms (purely sensory left sided face, arm, leg numbness/tingling). Symptoms started approximately 11:15 AM while working on a computer. Sudden onset dizziness/lightheadedness/feeling faint with gradually worsening tingling and numbness on the left side of her body including face, arm, leg. She denies any diplopia or vertigo sensation. Symptoms became worse over the 5 to 10 minutes and then gradually became better the next 30 minutes. Her left arm was the last symptom to resolve. No extremity weakness, change in hearing, speech, vision (other than that mentioned above). She has a longstanding history of migraines. These are much more severe as a teenager and classic with a headache lasting for hours with noise and light thuan ing it worse. More recently she has an aura/vision sensation without headache which she puts down to migraines usually once a month. These last for 15 to 20 minutes. She had 1 of these yesterday. No increased frequency recently. No increase in stress. No association with looking at screens. Symptoms above are very different to these previous migraine attacks. Telemetry stroke in the ER recommended no TPA given resolution of symptoms. Recommended inpatient work-up for TIA. Principal Diagnosis Likely TIA vs. possible complex migraine Discharge Exam Constitutional well developed and well nourished; no acute distress Eyes PERRL, conjunctivae normal, anicteric sclerae EOM intact bilaterally (No diplopia) ENMT external ear and nose normal, oropharynx normal Neck trachea midline, no thyromegaly Respiratory normal respiratory effort, lungs clear to auscultation Cardiovascular RRR, no murmur, no edema Gastrointestinal (Abdomen) normal bowel sounds, soft, nontender, no hepatosplenomegaly Musculoskeletal no cyanosis or clubbing, extremities motor strength 5/5 Skin no rashes, warm and dry Neurologic moves all extremities and awake; no focal motor deficits and not confused Motor/Sensory: no tremor, no pronator drift and no sensory deficit Cranial Nerves: PERRL, normal accommodation, EOM intact bilaterally, normal facial strength, normal hearing, able to rotate head bilaterally, able to elevate shoulders bilaterally, no nystagmus and symmetric palate elevation Coordination: normal [id number]-[id number] test and normal [id number] test Psychiatric A+Ox3, euthymic affect Lymphatic no cervical or axillary lymphadenopathy Discharge Data Allergies Allergy/AdvReac Type Severity Reaction Status Date / Time No Known Allergies Allergy Verified 12/28/19 13:31 Consultations 12/28/19 13:14 ED Decision to Admit Stat 12/28/19 15:31 Consult Case Management - Discharge Planning Routine Consult Neurology Routine Ordered Studies 12/28/19 12:03 CT angio head w con Stat CT angio neck with con Stat CT head/brain wo con Stat 12/28/19 15:31 MR brain wo con Routine 12/28/19 19:01 US venous doppler LE BI Routine Hospital Course (1) Stroke-like symptoms: Suspect complex migraine without headache given significant history of this and associated lightheadedness (no vertigo). However symptoms are significantly different from her usual migranous auras and age > 50 yo therefore will complete workup for possible purely sensory (?thalamic) TIA and continue on aspirin pending neurology review. - Seen by neurology with thought for possible TIA. * Aspirin 81 mg daily * Statin -> Discharged on atorvastatin 20 mg PO daily (patient preferred lower dose statin with lifestyle modification over higher-dose statin. Will check lipids in a few months.) * Echo showed known FPO, but Dopplers did not show any DVT. * Neurology recommended 30-day event monitor which can be arranged outpatient. (2) Migraine with aura: Neurology recommended 200 - 400 mg magnesium supplement per day as headache prophylaxis. (3) Extrinsic asthma: Albuterol PRN (4) Allergic rhinitis due to pollen: Continue montelukast 10mg PO daily (5) Multinodular thyroid: Incidental finding on CTA, similar to 2011. TSH with a.m. labs was 1.4. Total Time Total Time Spent Total Time Spent (In Minutes): 35 Discharge Plan Discharge Items Patient Disposition: Home - Self-Care Reason For Visit: TIA Discharge Diagnosis: TIA Condition on Discharge: Good Activity: Resume your previous activity Non-emergency contact: Primary Care Provider and Neurologist Call non-emergency contact if: your symptoms worsen Follow-up/Referrals: Lita Moraes MD [Physician] - (Please speak with Dr. Moraes in 4- 6 weeks either in person or via tele-health.) Nuria Toribio DO [Primary Care Provider] - Diet: Heart Healthy Addtl Attending Provider Instructions: You were admitted to the hospital with face and arm tingling. We cannot be entirely sure if this was related to a TIA vs. migraine, but the concern certainly is that if it is a TIA, it could return and cause permanent changes. As such, we are doing our best to reduce all risk factors for a stroke. In this regard, we are asking you to start a baby aspirin (81 mg) every day. Of note, a full-strength aspirin (325 mg) does NOT confer more protection, but can increase your risk of a stomach ulcer, so there is no need to feel like you need to take more than just the baby aspirin. We are also staring you on a medium-dose statin called atorvastatin. It will hopefully lower your LDL (the "bad" cholesterol). Your PCP or Dr. Moraes can recheck your lipids in a few months to see how you're doing. For your migraines (or even your auras), you can try to take magnesium supplements at 200 mg or 400 mg per day to help reduce these symptoms. Pending Studies at Discharge: No Stand-Alone Forms: Medications to Prevent Stroke, [facility], Smoking Cessation Medications and DC Order Prescriptions: New aspirin 81 mg Tablet,Delayed Release (Dr/Ec) 81 mg PO QAM Qty: 1 RF: 0 atorvastatin 20 mg tablet 20 mg PO DAILY Qty: 30 RF: 1 Continued albuterol sulfate 90 mcg/actuation HFA aerosol inhaler 2 puffs inhalation .COMPLEX RF: 0 calcium carbonate-vitamin D3 600 mg(1,500mg) -200 unit tablet 1 tab PO [id number] RF: 0 montelukast 10 mg tablet 10 mg PO DAILY Qty: 90 RF: 3 Discharge Orders: Discharge Order (Routine); Ordered 12/29/19 Ordered By: Uche Matson Admission Data Admit Date/Time: 12/28/19 13:57 Attending Provider: Uche Matson Admit Provider: Pawel Delgado Primary Care Provider: Nuria Toribio Other Providers: Lita Moraes ; Uche Matson Other Interventions: Discharge Summary Assessment (RN) Last Done: 12/29/19 12:18 DC Date/Time DO NOT enter until pt leaves facility: 12/29/19 13:05 Coding Level of Care Code 83515 OBS Care - Discharge Diagnoses Stroke-like symptoms R29.90 Migraine with aura G43.109 Status migrainosus presence: without status migrainosus Intractability: not intractable Extrinsic asthma J45.20 Asthma severity: mild Asthma persistence: intermittent Asthma complication type: uncomplicated Allergic rhinitis due to pollen J30.1 Multinodular thyroid E04.2
== END 2019-12-29 13:05 | disposition home or self-care (01) ==
LOC: ED 11:48 → 2N 11:48 → SUATTDRO 13:57 → 2N 15:08